=== PATIENT | male | born 1995 | race Two or more races ===

== ENCOUNTER 2021-01-19 00:18 | Outpatient (CLI) | payer OTHER | END 2021-01-19 00:19 | disposition home or self-care (01) | LOC: PPH VACUNA 00:18 | DX: Z23 Encounter for immunization (principal) ==

== ENCOUNTER 2021-10-03 08:00 | Outpatient (CLI) | payer OTHER | END 2021-10-03 08:30 | disposition home or self-care (01) | LOC: PPH VACUNA 08:00 | PROVIDERS: ATTEND Emergency Medicine Pediatric Emergency Medicine | DX: Z23 Encounter for immunization (principal) ==

== ENCOUNTER 2023-01-24 08:53 | Emergency (ER) | payer OTHER ==
[~2023-01-24] VITALS: Ht 165.1 cm; Wt 63.5 kg
== END 2023-01-24 11:26 | disposition home or self-care (01) ==
LOC: ER 08:53
DX: R42 Dizziness and giddiness (principal); R11.0 Nausea; N39.0 Urinary tract infection, site not specified; Z20.822 Contact with and (suspected) exposure to COVID-19

== ENCOUNTER 2023-05-02 13:27 | Outpatient (CLI) | payer OTHER | END 2023-05-02 14:46 | disposition home or self-care (01) | LOC: LAB 13:27 | DX: U07.1 COVID-19 (principal) ==

== ENCOUNTER → 2023-05-10 | Outpatient (CLI) | payer OTHER | END | disposition home or self-care (01) | LOC: PPH VACUNA | PROVIDERS: ATTEND Emergency Medicine Pediatric Emergency Medicine | DX: Z23 Encounter for immunization (principal) ==

== ENCOUNTER 2024-07-02 11:00 | Outpatient (CLI) | payer OTHER | END 2024-07-02 12:00 | disposition home or self-care (01) | LOC: PPH VACUNA 11:00 | PROVIDERS: ATTEND Emergency Medicine Pediatric Emergency Medicine | DX: Z23 Encounter for immunization (principal) ==

== ENCOUNTER 2024-11-28 11:16 | Emergency (ER) | payer OTHER ==
[~2024-11-28] VITALS: Ht 170.2 cm; Wt 68.0 kg
[2024-11-28] MEDS ORDERED: KETOROLAC TROMETHAMINE 30 MG VIAL IM ONE (13:15)
[2024-11-28] MEDS ORDERED: ORPHENADRINE CITRATE 30 MG/ML AMPUL IM ONE (13:15)
[2024-11-28] MEDS ORDERED: DEXAMETHASONE SODIUM PHOSPHATE 4 MG/ML VIAL IM ONE (13:15)
[2024-11-28] MEDS ORDERED: ORPHENADRINE CITRATE 30 MG/ML AMPUL ONE (13:20)
[2024-11-28] MEDS ORDERED: KETOROLAC TROMETHAMINE 60 MG VIAL IM ONE (13:21)
[2024-11-28] MEDS ORDERED: NORFLEX100MG PO (13:22)
[2024-11-28] MEDS ORDERED: DICLOFENAC SODI50 MG PO (13:22)
== END 2024-11-28 13:49 | disposition home or self-care (01) ==
LOC: ER 11:19
DX: M62.838 Other muscle spasm (principal); Z91.010 Allergy to peanuts

== ENCOUNTER 2025-08-12 08:30 | Outpatient (CLI) | payer OTHER ==
[~2025-08-12 08:30] MED LIST: DICLOFENAC SODI50 MG PO; NORFLEX100MG PO
== END 2025-08-12 08:40 | disposition home or self-care (01) ==
LOC: PPH VACUNA 08:30
PROVIDERS: ATTEND Emergency Medicine Pediatric Emergency Medicine
DX: Z23 Encounter for immunization (principal)